=== PATIENT | male | born 1975 | race African-American/Black ===

== ENCOUNTER 2021-05-01 04:28 | Emergency (ER) | payer OTHER, SELFPAY ==
[~2021-05-01] VITALS: Ht 180.3 cm; Wt 95.3 kg
[2021-05-01 04:28] VITALS: BP_SYST 168
[~2021-05-01 04:28] MED LIST: AMOX500C2 PO; ASA81 PO; CARV6.2554 PO; LACT1CAP69 PO; LIP80 PO; LISI-209 PO; TAMS0.4C96 PO
[2021-05-01] MEDS ORDERED: ONDANSETRON HCL 4 MG/2 ML VIAL IVP ONE (04:45)
[2021-05-01] MEDS ORDERED: MORPHINE 4 MG INJ. 4 MG/ML VIAL IVP ONE (04:45)
[2021-05-01 05:07] LABS: RED CELL DISTRIBUTION WIDTH 12.6 % (9.0-15.0)
[2021-05-01 05:17] LABS: BASOPHILS # (AUTO) 0.1 K/uL (0.0-0.2); BASOPHILS % (AUTO) 0.6 % (0.0-2.0); EOSINOPHILS # (AUTO) 0.1 K/uL (0.0-0.4); EOSINOPHILS % (AUTO) 0.4 % (0.0-4.0); HEMATOCRIT 42.3 % (36-54); HEMOGLOBIN 14.6 g/dL (14.0-18.0); LYMPHOCYTES # (AUTO) 1.4 K/uL (1.0-5.5); LYMPHOCYTES % (AUTO) 9.5 % (20.5-51.5); MEAN CORPUSCULAR HEMOGLOBIN 31 pg (27-31); MEAN CORPUSCULAR HGB CONC 35 % (32-36); MEAN CORPUSCULAR VOLUME 90 fL (79.0-98.0); NEUTROPHILS # (AUTO) 12.3 K/uL (1.8-7.7); NEUTROPHILS % (AUTO) 82.5 % (40.0-70.0); PLATELET COUNT (AUTO) 293 K/uL (130-430); RED BLOOD CELL COUNT(AUTO) 4.72 MIL/uL (4.2-6.2); WHITE BLOOD COUNT (AUTO) 14.9 K/uL (4.8-10.8)
[2021-05-01 05:22] LABS: CALCIUM 10.1 mg/dL (8.4-11.0); CREATININE 1.86 mg/dL (0.55-1.30); POTASSIUM 4.6 mmol/L (3.5-5.1)
[2021-05-01 05:28] LABS: ALBUMIN 4.2 g/dL (3.4-4.8); TOTAL BILIRUBIN 0.8 mg/dL (0.0-1.0)
[2021-05-01] MEDS ORDERED: LORazepam 2 MG/ML VIAL ONE (05:29)
[2021-05-01] MEDS ORDERED: KETOROLAC TROMETHAMINE 15 MG VIAL ONE (05:29)
[2021-05-01] MEDS ORDERED: KETOROLAC TROMETHAMINE 15 MG VIAL IVP ONE (05:30)
[2021-05-01] MEDS ORDERED: HYDROmorphone 1 MG/ML INJ. CARTRIDGE IVP ONE (05:30)
[2021-05-01] MEDS ORDERED: LORazepam 2 MG/ML VIAL IVP ONE (05:30)
[2021-05-01 05:55] LABS: BILIRUBIN,URINE NEGATIVE (NEGATIVE); BLOOD, URINE 2+ (NEGATIVE); CLARITY/URINE CLEAR (CLEAR); COLOR,URINE YELLOW (YELLOW); GLUCOSE,URINE NEGATIVE (NEGATIVE); KETONES,URINE NEGATIVE (NEGATIVE); LEUKOCYTE ESTERASE ,URINE NEGATIVE (NEGATIVE); NITRITE, URINE NEGATIVE (NEGATIVE); PROTEIN URINE NEGATIVE (NEGATIVE); UROBILINOGEN,URINE 0.2 (0.2-1.0)
[2021-05-01 06:09] LABS: WBC,URINE 0-3 /HPF (0-3)
[2021-05-01 06:10] LABS: BACTERIA,URINE RARE /HPF (None Seen); MUCUS,URINE 1+ /LPF (None Seen)
[2021-05-01] MEDS ORDERED: HYDR-3921 PO (08:23)
[2021-05-01 09:34] VITALS: BP_SYST 117
== END 2021-05-01 09:34 | disposition home or self-care (01) ==
LOC: SED 04:28
DX: N13.2 Hydronephrosis with renal and ureteral calculous obstruction (principal); Z79.899 Other long term (current) drug therapy
CPT/HCPCS: 36415; 74176; 76376; 80053; 81000; 83605; 83690; 85025; 93005; 96374; 96375; 99285; J1170; J1885; J2060; J2270; J2405; 99284